=== PATIENT | female | born 1975 | race African-American/Black ===

== ENCOUNTER 2019-05-04 10:36 | Emergency (ER) | payer OTHER ==
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
[2019-05-04 11:44] VITALS: BMI 25.8
[2019-05-04 12:08] VITALS: BP 104/59; PULSE 78; TEMP 98.8
== END 2019-05-04 13:51 | disposition home or self-care (01) ==
LOC: JER 10:36
DX: O99.89 Other specified diseases and conditions complicating pregnancy, childbirth and the puerperium (principal); R10.32 Left lower quadrant pain; Z3A.23 23 weeks gestation of pregnancy; V43.52XA Car driver injured in collision with other type car in traffic accident, initial encounter; Y92.414 Local residential or business street as the place of occurrence of the external cause; Y93.89 Activity, other specified; Y99.8 Other external cause status
CPT/HCPCS: 76815; 99281-25